=== PATIENT | male | born 1970 | race Caucasian/White ===

== ENCOUNTER 2016-04-04 20:33 | Emergency (ER) | payer BC ==
--- NOTE | 2016-04-04 20:56 | ED Physician Documentation ---
General Adult - HISTORIAN Historian: patient - HPI Stated Complaint: nausea/vomiting Chief Complaint: General Adult Onset: days ago (1) Timing: still present Severity: moderate Further Comments: yes (Pt is a 46 yo male who was dx'd with Influenza yesterday and started on Tamiflu. Pt has had n/v, malaise, dizziness, and was unable to keep down the Tamiflu he took.) - ROS CONST: weakness, chills, other (malaise) EYES/ENT: nasal congestion CVS/RESP: none GI/: vomiting, nausea MS/SKIN/LYMPH: none NEURO/PSYCH: headache (mild - moderate) - PAST HX Past History: other (anxiety) Allergies/Adverse Reactions: Allergies Allergy/AdvReac Type Severity Reaction Status Date / Time No Known Allergies Allergy Verified 04/04/16 21:27 Home Medications: Ambulatory Orders Medication Instructions Recorded Paroxetine HCl [Paxil Cr] 25 mg PO 04/26/15 - SOCIAL HX Smoking History: non-smoker - FAMILY HX Family History: No - VITAL SIGNS Vital Signs: Vital Signs Temp Pulse Resp BP Pulse Ox 112/72 04/26/15 13:04 - REVIEWED ASSESSMENTS Nursing Assessment Reviewed: Yes Vitals Reviewed: Yes Progress - Progress Progress: NS 1.5 L IVF Zofran 4 mg IV Toradol 30 mg IV improved Continue Tamiflu. Rx Zofran 4 mg ODT, 1 po q 8 hrs prn. #10. General Adult Physical Exam - PHYSICAL EXAM GENERAL APPEARANCE: moderate distress EENT: eye inspection normal, ENT inspection normal, pharynx normal, TM's nml NECK: normal inspection, supple RESPIRATORY: no resp distress, chest non-tender, breath sounds normal CVS: reg rate & rhythm, heart sounds normal ABDOMEN: soft, no organomegaly, normal bowel sounds BACK: normal inspection, no CVA tenderness SKIN: warm/dry, normal color EXTREMITIES: non-tender, normal range of motion, no evidence of injury NEURO: oriented X3, motor nml, sensation nml Discharge Clincal Impression: Influenza Nausea & vomiting Qualifiers: Vomiting type: unspecified Vomiting Intractability: non-intractable Qualified Code(s): R11.2 - Nausea with vomiting, unspecified Referrals: Tamia Michele MD [Primary Care Provider] - Home Medications: Ambulatory Orders Paroxetine HCl [Paxil Cr] 25 mg PO 04/26/15 Condition: Good Disposition: 01 HOME, SELF-CARE Decision to Admit: NO Decision Time: 23:27
[2016-04-04] MEDS ORDERED: 0.9 % SODIUM CHLORIDE 1,000 ML IV ONE (20:59)
[2016-04-04] MEDS ORDERED: ONDANSETRON HCL/PF 4 MG/ 2ML VIAL IVP ONE (20:59)
[2016-04-04 22:08] LABS: BASOPHILS % 0.2 (0.0-1.5); EOSINOPHILS % 0.3 % (0.0-6.8); LYMPHOCYTES # 0.3 # k/uL (0.6-4.0); MEAN CORPUSCULAR HEMOGLOBIN 28.2 pg (28.0-34.0); MONOCYTES # 0.3 # k/uL (0.0-0.9); MONOCYTES % 9.2 % (0.0-11.0)
[2016-04-04 22:20] LABS: eGFR (African) > 60; eGFR (Non-African) > 60
[2016-04-04] MEDS ORDERED: 0.9 % SODIUM CHLORIDE 500 ML IV ONE (22:37)
[2016-04-04] MEDS ORDERED: KETOROLAC TROMETHAMINE 30 MG/1ML VIAL ONE (23:12)
[2016-04-04] MEDS ORDERED: KETOROLAC TROMETHAMINE 30 MG/1ML VIAL IVP ONE (23:12)
[2016-04-04] MEDS ORDERED: ONDANSETRON HCL 4 MG TAB.RAPDIS PO ONE ×2 (23:26→23:27)
[2016-04-05 01:08] VITALS: BP 119/67
== END 2016-04-04 23:42 | disposition home or self-care (01) ==
LOC: ED 20:33
DX: J11.1 Influenza due to unidentified influenza virus with other respiratory manifestations (principal); R19.7 Diarrhea, unspecified
CPT/HCPCS: 80053; 85025; J1885; J2405; J7030; J7060; 96361; 96374; 96375; 99283; S1016